=== PATIENT | female | born 1940 | race Caucasian/White ===

== ENCOUNTER 2018-10-04 10:00 | Emergency (ER) | payer OTHER ==
[~2018-10-04] VITALS: Ht 165.1 cm; Wt 60.0 kg
[~2018-10-04 10:00] MED LIST: LORA0.5T2 PO
[2018-10-04] MEDS ORDERED: GABA-529 PO (10:04)
[2018-10-04] MEDS ORDERED: SIMV5TAB53 PO (10:04)
[2018-10-04] MEDS ORDERED: FAMOTIDINE 20MG/2ML VIAL IV STA (10:16)
[2018-10-04] MEDS ORDERED: ONDANSETRON HCL 4MG/2ML INJ IV STA (10:16)
[2018-10-04] MEDS ORDERED: SODIUM CHLORIDE 0.9% 1,000 ML IV ONE (10:16)
[2018-10-04] MEDS ORDERED: LORAZEPAM 1MG TABLET PO ONE (10:30)
[2018-10-04 10:52] LABS: BASOPHILS % 0.2 % (0.0-2.0); EOSINOPHILS % 0.3 % (0.0-5.0); HEMATOCRIT. 41.2 % (36.0-48.0); HEMOGLOBIN. 13.8 g/dL (12.0-16.0); LYMPHOCYTES % 16.2 % (20.0-50.0); MEAN CORPUSCULAR HEMOGLOBIN 31.1 pg (28.0-32.0); MEAN CORPUSCULAR VOLUME 92.9 fL (81.0-99.0); MEAN PLATELET VOLUME 8.5 fl (7.4-10.4); MONOCYTES % 8.3 % (2.0-8.0); PLATELET 193 x1000/uL (130-400); RED BLOOD CELL COUNT 4.43 mill/uL (4.2-5.4)
[2018-10-04 10:59] LABS: CHLORIDE 105 mEq/L (98-107)
[2018-10-04 11:01] LABS: INR 1.1; PROTHROMBIN TIME 10.6 sec (9.1-11.1)
[2018-10-04] MEDS ORDERED: POTASSIUM CHLORIDE 20MEQ TABLET SR PO ONE (11:15)
[2018-10-04 12:27] LABS: CLARITY URINE CLEAR (CLEAR); COLOR URINE YELLOW (YELLOW); KETONES URINE 2+ (NEGATIVE); LEUKOCYTE ESTERASE URINE 2+ (NEGATIVE); NITRITE URINE NEGATIVE (NEGATIVE); OCCULT BLOOD URINE TRACE (NEGATIVE); PROTEIN URINE NEGATIVE (NEGATIVE); SPECIFIC GRAVITY URINE 1.023 (1.005-1.030)
[2018-10-04 15:20] VITALS: BP 128/88
== END 2018-10-04 15:22 | disposition home or self-care (01) ==
LOC: ER 10:00
DX: R10.13 Epigastric pain (principal); R11.2 Nausea with vomiting, unspecified; F41.9 Anxiety disorder, unspecified; J45.909 Unspecified asthma, uncomplicated; K21.9 Gastro-esophageal reflux disease without esophagitis; I10 Essential (primary) hypertension; Z88.2 Allergy status to sulfonamides
CPT/HCPCS: 36415; 71045; 74176; 80053; 81003; 83690; 83735; 83880; 84484; 85025; 85610; 93005; 96361; 96374; 96375; 99284; J2405; J3490; J7030; A4315

== ENCOUNTER 2019-08-30 12:05 | Emergency (ER) | payer OTHER, MEDICARE ==
[~2019-08-30] VITALS: Ht 160 cm; Wt 63.0 kg
[~2019-08-30 12:05] MED LIST changes: +GABA-529 PO; +SIMV5TAB58 PO
[2019-08-30 14:58] LABS: BASOPHILS % 0.4 % (0.0-2.0); EOSINOPHILS % 2.6 % (0.0-5.0); HEMATOCRIT. 38.2 % (36.0-48.0); HEMOGLOBIN. 12.9 g/dL (12.0-16.0); LYMPHOCYTES % 24.3 % (20.0-50.0); MEAN CORPUSCULAR HEMOGLOBIN 31.5 pg (28.0-32.0); MEAN CORPUSCULAR VOLUME 93.2 fL (81.0-99.0); MEAN PLATELET VOLUME 9.1 fl (7.4-10.4); MONOCYTES % 11.2 % (2.0-8.0); NEUTROPHILS % 61.5 % (40.0-76.0); PLATELET 191 x1000/uL (130-400); RED CELL DISTRIBUTION WIDTH 13.5 % (11.6-14.6)
[2019-08-30 15:04] LABS: CHLORIDE 112 mEq/L (98-107); PROTHROMBIN TIME 10.3 sec (9.6-11.0)
[2019-08-30 15:10] LABS: ETHANOL BLOOD < 10 mg/dL
[2019-08-30 15:56] LABS: *AMPHETAMINES SCREEN URINE NEGATIVE (NEGATIVE); *BARBITURATES SCREEN URINE NEGATIVE (NEGATIVE); *BENZODIAZEPINES SCREEN URINE NEGATIVE (NEGATIVE); *COCAINE SCREEN URINE NEGATIVE (NEGATIVE); METHADONE URINE SCREEN NEGATIVE (NEGATIVE); OPIATES URINE SCREEN NEGATIVE (NEGATIVE)
[2019-08-30 15:57] LABS: CANNABINOID URINE SCREEN NEGATIVE (NEGATIVE); PHENCYCLIDINE URINE SCREEN NEGATIVE (NEGATIVE)
[2019-08-30 18:35] VITALS: BP 126/78
== END 2019-08-30 19:31 | disposition left against medical advice (07) ==
LOC: ER 12:05
DX: R10.84 Generalized abdominal pain (principal); R07.9 Chest pain, unspecified; R06.00 Dyspnea, unspecified; R05 Cough; K21.9 Gastro-esophageal reflux disease without esophagitis; I10 Essential (primary) hypertension; J45.909 Unspecified asthma, uncomplicated; F41.9 Anxiety disorder, unspecified; Z96.649 Presence of unspecified artificial hip joint; Z85.828 Personal history of other malignant neoplasm of skin; Z88.2 Allergy status to sulfonamides; Z79.899 Other long term (current) drug therapy; Z87.01 Personal history of pneumonia (recurrent); Z98.890 Other specified postprocedural states
CPT/HCPCS: 36415; 71045; 74176; 80053; 80305; 80320; 83605; 83690; 83880; 84484; 85025; 85610; 93005; 99284; Z7610; G0480

== ENCOUNTER 2024-10-12 09:46 | Emergency (ER) | payer MEDICARE, OTHER ==
[~2024-10-12] VITALS: Ht 162.6 cm; Wt 68.0 kg
[2024-10-12 09:56] VITALS: O2SAT 97
[2024-10-12 11:34] LABS: CHLORIDE 105 mEq/L (98-107); POTASSIUM 3.4 mEq/L (3.5-5.1); SODIUM 141 mEq/L (136-145)
[2024-10-12 11:35] LABS: CALCIUM 9.2 mg/dL (8.7-10.4); CARBON DIOXIDE 29 mEq/L (21-32)
[2024-10-12 11:40] LABS: CREATININE 0.6 mg/dL (0.6-1.0); GLUCOSE 109 mg/dL (70-105); UREA NITROGEN BLOOD 13 mg/dL (9-23)
[2024-10-12 11:43] LABS: BASOPHILS % 0.3 % (0.0-2.0); EOSINOPHILS % 0.6 % (0.0-5.0); HEMATOCRIT. 39.4 % (36.0-48.0); HEMOGLOBIN. 12.9 g/dL (12.0-16.0); LYMPHOCYTES % 18.5 % (20.0-50.0); MEAN CORPUSCULAR HEMOGLOBIN 30.2 pg (28.0-32.0); MEAN CORPUSCULAR HGB CONC 32.9 g/dL (31.0-37.0); MEAN CORPUSCULAR VOLUME 91.9 fL (81.0-99.0); MEAN PLATELET VOLUME 8.4 fl (7.4-10.4); MONOCYTES % 10.5 % (2.0-8.0); NEUTROPHILS % 70.1 % (40.0-76.0); PLATELET 299 x1000/uL (130-400); RED BLOOD CELL COUNT 4.28 mill/uL (4.2-5.4); RED CELL DISTRIBUTION WIDTH 13.3 % (11.6-14.6); TROPONIN I HIGH SENSITIVITY 8 ng/L (3.0-34)
[2024-10-12] MEDS: ACETAMINOPHEN 325MG TABLET PO ONE (13:00)
[2024-10-12] MEDS ORDERED: CLONIDINE 0.1MG TABLET PO PRN (14:45)
[2024-10-12] MEDS ORDERED: MAGNESIUM/ALUMINUM HYDROXIDE/SIMETHICONE 30ML UDC PO PRN (14:45)
[2024-10-12] MEDS ORDERED: ACETAMINOPHEN 325MG TABLET PO PRN ×2 (14:45)
[2024-10-12] MEDS ORDERED: DOCUSATE SODIUM 100MG CAPSULE PO PRN (14:45)
[2024-10-12] MEDS ORDERED: NA PHOS,M-B/NA PHOS,DI-BA ENEMA 118ML PR PRN (14:45)
[2024-10-12] MEDS ORDERED: ONDANSETRON HCL 4MG/2ML INJ IV PRN (14:45)
[2024-10-12] MEDS ORDERED: GUAIFENESIN 200MG/10ML SUGAR FREE UDC PO PRN (14:45)
[2024-10-12] MEDS ORDERED: DEXTROSE 50% WATER 50ML SYRINGE IV PRN (14:45)
[2024-10-12] MEDS ORDERED: IPRATROPIUM/ALBUTEROL 0.5-3(2.5)MG/3ML NEB HHN PRN (15:06)
[2024-10-12] MEDS ORDERED: BLOOD SUGAR DIAGNOSTIC STRIP TEST SCH (17:00)
[2024-10-12 17:47] VITALS: BP 91/60; PULSE 90; RESP 16; TEMP 36.55848; O2SAT 97
[2024-10-12] MEDS: POTASSIUM CHLORIDE 20MEQ TABLET SR PO NR (18:00)
[2024-10-12] MEDS: PANTOPRAZOLE 40MG DR TABLET PO SCH (18:00)
[2024-10-13] MEDS ORDERED: ENOXAPARIN 40MG/0.4ML SYR SUBCUT SCH (09:00)
== END 2024-10-12 18:11 | disposition short-term general hospital (02) ==
LOC: EDBD 09:46 → ER 09:46 → EDBEDREQ 14:08 → EDBEDREQTM 14:08 → ER 18:11
DX: M25.551 Pain in right hip (principal); R62.7 Adult failure to thrive; J45.909 Unspecified asthma, uncomplicated; K21.9 Gastro-esophageal reflux disease without esophagitis; K44.9 Diaphragmatic hernia without obstruction or gangrene; Z88.2 Allergy status to sulfonamides; Z96.643 Presence of artificial hip joint, bilateral
CPT/HCPCS: 36415; 71045; 73502; 80048; 83880; 84484; 85025; 93005; 99285

== ENCOUNTER 2024-11-17 16:17 | Emergency (ER) | payer OTHER ==
[~2024-11-17] VITALS: Ht 157.5 cm; Wt 55.0 kg
[2024-11-17 16:21] VITALS: O2SAT 96
[2024-11-17] MEDS: SODIUM CHLORIDE 0.9% 500 ML IV ONE (17:18)
[2024-11-17 17:39] LABS: BASOPHILS % 0.5 % (0.0-2.0); EOSINOPHILS % 0.7 % (0.0-5.0); HEMATOCRIT. 35.7 % (36.0-48.0); HEMOGLOBIN. 11.8 g/dL (12.0-16.0); LYMPHOCYTES % 15.6 % (20.0-50.0); MEAN CORPUSCULAR HEMOGLOBIN 29.5 pg (28.0-32.0); MEAN CORPUSCULAR VOLUME 89.2 fL (81.0-99.0); MEAN PLATELET VOLUME 7.8 fl (7.4-10.4); MONOCYTES % 8.2 % (2.0-8.0); PLATELET 378 x1000/uL (130-400); RED CELL DISTRIBUTION WIDTH 14.4 % (11.6-14.6); WHITE BLOOD COUNT 8.5 x1000/uL (4.5-11.0)
[2024-11-17 17:48] LABS: CARBON DIOXIDE 31 mEq/L (21-32); CHLORIDE 105 mEq/L (98-107); POTASSIUM 4.8 mEq/L (3.5-5.1); SODIUM 141 mEq/L (136-145)
[2024-11-17 17:49] LABS: CALCIUM 9.2 mg/dL (8.7-10.4)
[2024-11-17 17:53] LABS: CREATININE 0.7 mg/dL (0.6-1.0)
[2024-11-17 17:54] LABS: GLUCOSE 117 mg/dL (70-105); TROPONIN I HIGH SENSITIVITY 4 ng/L (3.0-34); UREA NITROGEN BLOOD 18 mg/dL (9-23)
[2024-11-17 17:55] LABS: ALANINE AMINOTRANSFERASE 38 IU/L (10-49); ASPARTATE AMINOTRANSFERASE 45 IU/L (<34)
[2024-11-17 17:56] LABS: ALBUMIN 3.4 g/dL (3.2-4.8); BILIRUBIN DIRECT 0.1 mg/dL (<=3.0); BILIRUBIN TOTAL 0.5 mg/dL (0.1-1.0); PROTEIN TOTAL 6.5 g/dL (6.0-8.3)
[2024-11-17 20:13] VITALS: BP 99/63; PULSE 99; RESP 18; TEMP 36.4; O2SAT 96
== END 2024-11-17 20:20 | disposition home or self-care (01) ==
LOC: ER 16:17
DX: S50.811A Abrasion of right forearm, initial encounter (principal); W18.39XA Other fall on same level, initial encounter; Y93.89 Activity, other specified; Y92.89 Other specified places as the place of occurrence of the external cause; Y99.8 Other external cause status; F41.9 Anxiety disorder, unspecified; I11.9 Hypertensive heart disease without heart failure; J44.89 Other specified chronic obstructive pulmonary disease; K21.9 Gastro-esophageal reflux disease without esophagitis; Z88.2 Allergy status to sulfonamides; Z96.649 Presence of unspecified artificial hip joint
CPT/HCPCS: 99285; 71045; 80076; 80048; 83605; 85025; 86850; 86900; 86901; 84484; 36415; 93005; J7040

== ENCOUNTER 2025-09-20 10:12 | Emergency (ER) | payer MEDICARE, OTHER ==
[~2025-09-20] VITALS: Ht 152.4 cm; Wt 55.0 kg
[2025-09-20 10:14] VITALS: O2SAT 98
[2025-09-20] MEDS: PIPERACILLIN/TAZO 3.375G/50ML 50 ML IV ONE (11:02)
[2025-09-20] MEDS: SODIUM CHLORIDE 0.9% (SEPSIS BOLUS) IV ONE (11:02)
[2025-09-20 11:07] LABS: BASOPHILS % 0.4 % (0.0-2.0); EOSINOPHILS % 0.2 % (0.0-5.0); HEMATOCRIT. 34.3 % (36.0-48.0); HEMOGLOBIN. 11.2 g/dL (12.0-16.0); LYMPHOCYTES % 27.6 % (20.0-50.0); MEAN PLATELET VOLUME 7.6 fl (7.4-10.4); MONOCYTES % 5.4 % (2.0-8.0); NEUTROPHILS % 66.4 % (40.0-76.0); PLATELET 438 x1000/uL (130-400); RED BLOOD CELL COUNT 4.23 mill/uL (4.2-5.4); RED CELL DISTRIBUTION WIDTH 17.6 % (11.6-14.6)
[2025-09-20] MEDS: VANCOMYCIN 1G PREMIX 200 ML IV ONE (11:17)
[2025-09-20 11:19] LABS: INR 1.1
[2025-09-20 11:32] LABS: CREATININE 0.7 mg/dL (0.6-1.0)
[2025-09-20 11:33] LABS: PROTEIN TOTAL 6.2 g/dL (6.0-8.3); UREA NITROGEN BLOOD 17 mg/dL (9-23)
[2025-09-20 11:34] LABS: ASPARTATE AMINOTRANSFERASE 37 IU/L (<34)
[2025-09-20 11:35] LABS: BILIRUBIN DIRECT 0.2 mg/dL (<=3.0); BILIRUBIN TOTAL 0.6 mg/dL (0.1-1.0)
[2025-09-20] MEDS: SODIUM CHLORIDE 0.9% 1,000 ML IV ONE (11:36)
[2025-09-20 15:00] VITALS: BP 100/53; PULSE 86; RESP 16; TEMP 36.5; O2SAT 98
== END 2025-09-20 15:31 | disposition short-term general hospital (02) ==
LOC: ER 10:12 → CANBEDREQ 12:49 → ER 15:31
DX: G93.40 Encephalopathy, unspecified (principal); I10 Essential (primary) hypertension; E86.0 Dehydration; A41.9 Sepsis, unspecified organism; F41.9 Anxiety disorder, unspecified; J45.909 Unspecified asthma, uncomplicated; Z88.2 Allergy status to sulfonamides; Z87.01 Personal history of pneumonia (recurrent); Z79.899 Other long term (current) drug therapy
CPT/HCPCS: 99291; 96365; 70450; 96366; 80076; 80048; 83605; 85025; 85610; 87040; 36415; 84145; 71045; 93005; 96368; J2543; J3373; J7030